=== PATIENT | female | born 1955 | race Caucasian/White ===

== ENCOUNTER 2017-11-02 17:38 | Inpatient (IN) | payer BC ==
[~2017-11-02] VITALS: Ht 177.8 cm; Wt 60.1 kg
[2017-11-02 19:11] LABS: Basophils # (auto) 0 uL; Basophils % (auto) 0.2 % (0.0-2.0); Eosinophils # (auto) 0 uL; Eosinophils % (auto) 0.2 % (0.0-7.0); Hematocrit 40.4 % (36.0-46.0); Hemoglobin 13.7 g/dL (12.2-16.2); Lymphocytes # (auto) 1.9 uL; Lymphocytes % (auto) 9.3 % (10.0-50.0); Mean Corpuscular Hemoglobin 31.4 pg (28.0-32.0); Mean Corpuscular Hgb Conc. 33.9 g/dL (32.0-36.0); Mean Corpuscular Volume 92.6 fL (80.0-100.0); Monocytes # (auto) 0.9 uL; Monocytes % (auto) 4.6 % (0.0-12.0); Neutrophils # (auto) 17.3 uL; Neutrophils % (auto) 85.7 % (37.0-80.0); Nucleated Red Blood Cells % 0.1 %; Platelet Count (auto) 281 10^3/uL (140-450); Red Blood Cells 4.37 10^6/uL (4.0-5.20); Red Cell Distribution Width 12.9 % (11.8-14.3); White Blood Cell 20.2 10^3/uL (4.4-10.8)
[2017-11-02] MEDS ORDERED: ONDANSETRON HCL 4 MG/2 ML VIAL ONE (19:17)
[2017-11-02 19:24] LABS: INR 0.99 (0.9-1.15); Partial Thromboplastin Time 23.3 sec (22.64-33.71); Prothrombin Time 10.8 sec (9.37-12.3)
[2017-11-02 19:34] LABS: Albumin 4.3 g/dL (3.4-5.0); BUN/Creatinine Ratio 18.5; Bilirubin, Total 0.4 mg/dL (0.2-1.0); Calcium 9.4 mg/dL (8.5-10.1); Magnesium 2.1 mg/dL (1.6-2.6); Potassium 3.8 mmol/L (3.5-5.1); Total Protein 7.6 g/dL (6.4-8.2)
[2017-11-02] MEDS ORDERED: NALBUPHINE HCL 10 MG/1ml INJECTION IV ONE ×2 (20:00→22:15)
[2017-11-02] MEDS ORDERED: PROMETHAZINE HCL 25 MG/ML 1ML IV ONE ×2 (20:00→22:15)
[2017-11-02 20:44] LABS: Amylase 56 U/L (25-115); Lipase 140 U/L (73-393)
[2017-11-02] MEDS ORDERED: ACETAMINOPHEN 325 MG TAB PO PRN (23:30)
[2017-11-02] MEDS ORDERED: NITROGLYCERIN 0.4 MG SL TAB SL PRN (23:30)
[2017-11-02] MEDS ORDERED: PANTOPRAZOLE 40 MG/10 ML VIAL IV ONE (23:30)
[2017-11-02] MEDS ORDERED: HYDROcodone-ACET 5/325MG TAB PO PRN (23:30)
[2017-11-02] MEDS ORDERED: MORPHINE SULF INJ 2 MG/ML SYRINGE 1ML IV PRN (23:30)
[2017-11-02] MEDS ORDERED: TEMAZEPAM 15 MG CAP PO PRN (23:30)
[2017-11-02] MEDS: SODIUM CHLORIDE 0.9% 1,000 ML IV SCH (23:41)
[2017-11-03 01:30] VITALS: BP 155/64
[2017-11-03] MEDS: ONDANSETRON HCL 4 MG/2 ML VIAL IV PRN ×4 (01:34→15:50)
[2017-11-03] MEDS ORDERED: CLOP75TA28 PO (02:30)
[2017-11-03] MEDS ORDERED: METO-158 PO (02:30)
[2017-11-03] MEDS ORDERED: ASPI81TA27 PO (02:30)
[2017-11-03] MEDS ORDERED: HYDR-4683 PO (02:30)
[2017-11-03] MEDS ORDERED: NIAC500T71 PO (02:30)
[2017-11-03] MEDS ORDERED: ATOR80TA PO (02:30)
[2017-11-03] MEDS ORDERED: BACL10TA PO (02:30)
[2017-11-03] MEDS ORDERED: LOSA50TA6 PO (02:30)
[2017-11-03 05:00] VITALS: BP 154/80
[2017-11-03 05:38] LABS: Basophils # (auto) 0 uL; Basophils % (auto) 0.2 % (0.0-2.0); Eosinophils # (auto) 0 uL; Hematocrit 39.6 % (36.0-46.0); Hemoglobin 13.5 g/dL (12.2-16.2); Lymphocytes % (auto) 8.4 % (10.0-50.0); Mean Corpuscular Hemoglobin 31.6 pg (28.0-32.0); Mean Corpuscular Hgb Conc. 34.1 g/dL (32.0-36.0); Mean Corpuscular Volume 92.7 fL (80.0-100.0); Monocytes # (auto) 0.3 uL; Monocytes % (auto) 2.8 % (0.0-12.0); Neutrophils # (auto) 10.4 uL; Neutrophils % (auto) 88.6 % (37.0-80.0); Platelet Count (auto) 252 10^3/uL (140-450); Red Blood Cells 4.28 10^6/uL (4.0-5.20); Red Cell Distribution Width 12.8 % (11.8-14.3); White Blood Cell 11.7 10^3/uL (4.4-10.8)
[2017-11-03 06:00] LABS: Albumin 3.9 g/dL (3.4-5.0); Bilirubin, Total 0.5 mg/dL (0.2-1.0); Calcium 8.8 mg/dL (8.5-10.1); Potassium 4.4 mmol/L (3.5-5.1); Total Protein 7.3 g/dL (6.4-8.2)
[2017-11-03] MEDS: NALBUPHINE HCL 10 MG/1ml INJECTION IV PRN ×3 (07:58→15:50)
[2017-11-03 08:13] VITALS: BP 143/92
[2017-11-03] MEDS ORDERED: GASTROGRAFIN 120 ML SOL ONE (09:17)
[2017-11-03] MEDS ORDERED: PANTOPRAZOLE 40 MG/10 ML VIAL IV SCH (10:00)
[2017-11-03] MEDS ORDERED: ASPirin 81 mg TAB PO SCH (10:00)
[2017-11-03] MEDS ORDERED: Niacin SR 500mg TAB PO SCH (10:00)
[2017-11-03] MEDS ORDERED: LOSARTAN POTASSIUM 50 MG TAB PO SCH (10:00)
[2017-11-03] MEDS ORDERED: ENOXAPARIN SOD 40 MG/0.4 ML SYRINGE SC SCH (10:00)
[2017-11-03] MEDS ORDERED: METOPROLOL TARTRATE 50 MG TAB PO SCH (10:00)
[2017-11-03] MEDS ORDERED: CLOPIDOGREL BISULFATE 75 MG TAB PO SCH (10:00)
[2017-11-03 12:30] VITALS: BP 162/85
[2017-11-03] MEDS: SODIUM CHLORIDE 0.9% 1,000 ML IV SCH (12:49)
[2017-11-03 15:30] VITALS: BP 142/85
[2017-11-03] MEDS ORDERED: ATORVASTATIN 20 MG TAB PO SCH (22:00)
== END 2017-11-03 15:52 | disposition home or self-care (01) | DRG 390 ==
LOC: EDBD 17:38 → ER 17:38 → EDBD 17:39 → TELE 17:39 → TELE-WESTW 23:59
PROVIDERS: ADMIT Nurse Practitioner; ATTEND Nurse Practitioner
DX: K56.51 Intestinal adhesions [bands], with partial obstruction (principal); I50.9 Heart failure, unspecified; I11.0 Hypertensive heart disease with heart failure; Z95.1 Presence of aortocoronary bypass graft; M41.9 Scoliosis, unspecified; E78.5 Hyperlipidemia, unspecified; I70.0 Atherosclerosis of aorta; Z82.49 Family history of ischemic heart disease and other diseases of the circulatory system; Z83.3 Family history of diabetes mellitus; Z90.710 Acquired absence of both cervix and uterus; Z80.9 Family history of malignant neoplasm, unspecified; Z88.0 Allergy status to penicillin; Z88.2 Allergy status to sulfonamides; I25.2 Old myocardial infarction; Z95.0 Presence of cardiac pacemaker
CPT/HCPCS: 36415; 71045; 74176; 80053; 82150; 83605; 83690; 83735; 83880; 84443; 84484; 85025; 85610; 85730; 87040; 93005; 94761; 96374; 96375; 96376; C9113; J2405

== ENCOUNTER 2023-10-10 19:32 | Inpatient (IN) | payer BC ==
[~2023-10-10] VITALS: Ht 177.8 cm; Wt 71.1 kg
[~2023-10-10 19:32] MED LIST: ASPI-543 PO; ATOR80TA PO; BACL10TA PO; CLOP75TA28 PO; HYDR-4833 PO; LOSA50TA46 PO; METO-158 PO; NIAC500T71 PO
[2023-10-10] MEDS ORDERED: HYDROcodone-ACET 10/325MG TAB PO ONE (21:00)
[2023-10-10 21:46] LABS: Basophils # (auto) 0.1 10 ^3/uL (0-0.2); Basophils % (auto) 0.8 % (0.0-2.0); Eosinophils # (auto) 0.1 10 ^3/uL (0-0.8); Eosinophils % (auto) 1.7 % (0.0-7.0); Hemoglobin 13.2 g/dL (12.2-16.2); Lymphocytes % (auto) 40.4 % (10.0-50.0); Mean Corpuscular Hemoglobin 31.5 pg (28.0-32.0); Mean Corpuscular Hgb Conc. 32.9 g/dL (32.0-36.0); Mean Corpuscular Volume 95.9 fL (80.0-100.0); Monocytes # (auto) 0.7 10 ^3/uL (0-1.3); Monocytes % (auto) 9.4 % (0.0-12.0); Neutrophils # (auto) 3.5 10 ^3/uL (1.6-8.6); Neutrophils % (auto) 47.7 % (37.0-80.0); Nucleated Red Blood Cells % 0.1 %; Red Blood Cells 4.17 10^6/uL (4.0-5.20); Red Cell Distribution Width 12.7 % (11.8-14.3); White Blood Cell 7.3 10^3/uL (4.4-10.8)
[2023-10-10 22:05] LABS: Alanine Aminotransferase 12 U/L (7-40); Albumin 4.2 g/dL (3.2-4.8); Alkaline Phosphatase 99 U/L (46-116); Anion Gap 7 (5-15); Aspartate Aminotransferase 13 U/L (13-40); BUN/Creatinine Ratio 14.6 (10.0-20.0); Blood Urea Nitrogen 12 mg/dL (9-23); Calcium 9.7 mg/dL (8.5-10.1); Carbon Dioxide 26 mmol/L (20-30); Chloride 109 mmol/L (98-107); Glucose 95 mg/dL (74-106); Potassium 4.1 mmol/L (3.5-5.1); Sodium 142 mmol/L (136-145)
[2023-10-10 22:06] LABS: Bilirubin, Total 0.3 mg/dL (0.2-1.0); Total Protein 6.7 g/dL (5.7-8.2)
[2023-10-10 22:17] LABS: INR 1.04 (0.9-1.15); Prothrombin Time 10.9 sec (9.3-11.8)
[2023-10-11] MEDS ORDERED: MAALOX PLUS or MAALOX 30 ML PO PRN (01:45)
[2023-10-11] MEDS ORDERED: ACETAMINOPHEN 325 MG TAB PO PRN (01:45)
[2023-10-11] MEDS ORDERED: DOCUSATE SOD 100 MG CAP PO PRN (01:45)
[2023-10-11] MEDS: HYDROcodone-ACET 5/325MG TAB PO PRN ×2 (15:34→22:14)
[2023-10-11] MEDS ORDERED: CLOPIDOGREL BISULFATE 75 MG TAB PO ONE (18:30)
[2023-10-11] MEDS ORDERED: APIX5TAB PO (21:06)
[2023-10-11] MEDS ORDERED: ISOS1TAB28 PO (21:06)
[2023-10-11] MEDS ORDERED: IOHEXOL 350 MG/ML 100ML IJ ONE (21:06)
[2023-10-11] MEDS ORDERED: METO1TAB9 PO (21:06)
[2023-10-11] MEDS ORDERED: APIXABAN 5 MG TAB PO SCH (22:00)
[2023-10-11] MEDS: ATORVASTATIN 20 MG TAB PO SCH (22:10)
[2023-10-11] MEDS: APIXABAN 5 MG TAB PO SCH (22:10)
[2023-10-11] MEDS: METOPROLOL TARTRATE 25 MG TAB PO SCH (22:11)
[2023-10-12] VITALS (7 sets, daily range): BP systolic 116–146; BP diastolic 57–103; PULSE 60–87; RESP 18–20; TEMP 97.8–98.7; O2SAT 91–96
[2023-10-12] MEDS: HYDROcodone-ACET 5/325MG TAB PO PRN ×3 (05:29→21:25)
[2023-10-12 06:22] LABS: Basophils # (auto) 0.1 10 ^3/uL (0-0.2); Basophils % (auto) 1.1 % (0.0-2.0); Eosinophils # (auto) 0.1 10 ^3/uL (0-0.8); Eosinophils % (auto) 2.4 % (0.0-7.0); Hematocrit 36.1 % (36.0-46.0); Hemoglobin 12.1 g/dL (12.2-16.2); Lymphocytes # (auto) 2.3 10 ^3/uL (0.4-5.4); Lymphocytes % (auto) 40.5 % (10.0-50.0); Mean Corpuscular Hemoglobin 32.1 pg (28.0-32.0); Mean Corpuscular Hgb Conc. 33.5 g/dL (32.0-36.0); Mean Corpuscular Volume 95.9 fL (80.0-100.0); Monocytes # (auto) 0.6 10 ^3/uL (0-1.3); Monocytes % (auto) 10.6 % (0.0-12.0); Neutrophils # (auto) 2.5 10 ^3/uL (1.6-8.6); Neutrophils % (auto) 45.4 % (37.0-80.0); Red Blood Cells 3.76 10^6/uL (4.0-5.20); Red Cell Distribution Width 12.8 % (11.8-14.3); White Blood Cell 5.6 10^3/uL (4.4-10.8)
[2023-10-12 06:30] LABS: Alanine Aminotransferase 10 U/L (7-40); Albumin 3.8 g/dL (3.2-4.8); Alkaline Phosphatase 89 U/L (46-116); Anion Gap 7 (5-15); Aspartate Aminotransferase 9 U/L (13-40); BUN/Creatinine Ratio 16.7 (10.0-20.0); Bilirubin, Total 0.4 mg/dL (0.2-1.0); Blood Urea Nitrogen 13 mg/dL (9-23); Calcium 9.1 mg/dL (8.7-10.4); Carbon Dioxide 24 mmol/L (20-30); Chloride 111 mmol/L (98-107); Glucose 88 mg/dL (74-106); Potassium 4.5 mmol/L (3.5-5.1); Sodium 142 mmol/L (136-145); Total Protein 5.9 g/dL (5.7-8.2)
[2023-10-12] MEDS: METOPROLOL TARTRATE 25 MG TAB PO SCH ×2 (08:43→21:27)
[2023-10-12] MEDS: APIXABAN 5 MG TAB PO SCH ×2 (08:43→21:25)
[2023-10-12] MEDS: LOSARTAN POTASSIUM 25 MG TAB PO SCH (08:44)
[2023-10-12] MEDS ORDERED: CLOPIDOGREL BISULFATE 75 MG TAB PO SCH (10:00)
[2023-10-12] MEDS ORDERED: IOHEXOL 350 MG/ML 100ML IJ ONE (10:38)
[2023-10-12] MEDS: MORPHINE SULFATE INJ 2 MG/ml SYRG IV PRN ×2 (13:27→18:10)
[2023-10-12] MEDS: ATORVASTATIN 20 MG TAB PO SCH (21:25)
[2023-10-13] VITALS (7 sets, daily range): BP systolic 115–155; BP diastolic 68–89; PULSE 61–79; RESP 16–20; TEMP 98.1–98.3; O2SAT 93–98
[2023-10-13] MEDS: MORPHINE SULFATE INJ 2 MG/ml SYRG IV PRN ×6 (00:24→21:23)
[2023-10-13] MEDS: hydrALAZINE HCL 20 MG/ML VL IV PRN (04:31)
[2023-10-13 07:27] LABS: Basophils # (auto) 0.1 10 ^3/uL (0-0.2); Basophils % (auto) 0.9 % (0.0-2.0); Eosinophils # (auto) 0.2 10 ^3/uL (0-0.8); Eosinophils % (auto) 2.1 % (0.0-7.0); Hemoglobin 13.3 g/dL (12.2-16.2); Lymphocytes # (auto) 2.1 10 ^3/uL (0.4-5.4); Lymphocytes % (auto) 29.7 % (10.0-50.0); Mean Corpuscular Hemoglobin 31.6 pg (28.0-32.0); Mean Corpuscular Hgb Conc. 33.2 g/dL (32.0-36.0); Mean Corpuscular Volume 95.2 fL (80.0-100.0); Monocytes # (auto) 0.5 10 ^3/uL (0-1.3); Monocytes % (auto) 7.5 % (0.0-12.0); Neutrophils # (auto) 4.3 10 ^3/uL (1.6-8.6); Neutrophils % (auto) 59.8 % (37.0-80.0); Nucleated Red Blood Cells % 0.1 %; Red Blood Cells 4.21 10^6/uL (4.0-5.20); Red Cell Distribution Width 12.9 % (11.8-14.3); White Blood Cell 7.2 10^3/uL (4.4-10.8)
[2023-10-13] MEDS: APIXABAN 5 MG TAB PO SCH ×2 (08:47→21:19)
[2023-10-13] MEDS: METOPROLOL TARTRATE 25 MG TAB PO SCH ×2 (08:47→21:19)
[2023-10-13] MEDS: LOSARTAN POTASSIUM 25 MG TAB PO SCH (08:48)
[2023-10-13] MEDS: ATORVASTATIN 20 MG TAB PO SCH (21:19)
[2023-10-14] VITALS (7 sets, daily range): BP systolic 115–192; BP diastolic 57–93; PULSE 68–89; RESP 17–20; TEMP 97.8–98.4; O2SAT 93–96
[2023-10-14] MEDS: MORPHINE SULFATE INJ 2 MG/ml SYRG IV PRN ×5 (01:34→21:50)
[2023-10-14 06:12] LABS: Basophils # (auto) 0.1 10 ^3/uL (0-0.2); Basophils % (auto) 0.9 % (0.0-2.0); Eosinophils # (auto) 0.2 10 ^3/uL (0-0.8); Eosinophils % (auto) 2.5 % (0.0-7.0); Hematocrit 38.8 % (36.0-46.0); Hemoglobin 12.9 g/dL (12.2-16.2); Lymphocytes # (auto) 2.4 10 ^3/uL (0.4-5.4); Lymphocytes % (auto) 36.5 % (10.0-50.0); Mean Corpuscular Hemoglobin 31.6 pg (28.0-32.0); Mean Corpuscular Hgb Conc. 33.4 g/dL (32.0-36.0); Mean Corpuscular Volume 94.8 fL (80.0-100.0); Monocytes # (auto) 0.6 10 ^3/uL (0-1.3); Neutrophils # (auto) 3.4 10 ^3/uL (1.6-8.6); Neutrophils % (auto) 51.1 % (37.0-80.0); Nucleated Red Blood Cells % 0.1 %; Red Blood Cells 4.09 10^6/uL (4.0-5.20); Red Cell Distribution Width 12.8 % (11.8-14.3); White Blood Cell 6.6 10^3/uL (4.4-10.8)
[2023-10-14] MEDS: METOPROLOL TARTRATE 25 MG TAB PO SCH ×2 (08:46→21:27)
[2023-10-14] MEDS: APIXABAN 5 MG TAB PO SCH ×2 (08:46→21:27)
[2023-10-14] MEDS: LOSARTAN POTASSIUM 25 MG TAB PO SCH (08:46)
[2023-10-14] MEDS: ATORVASTATIN 20 MG TAB PO SCH (21:27)
[2023-10-14] MEDS: hydrALAZINE HCL 20 MG/ML VL IV PRN (21:49)
[2023-10-14] MEDS: ONDANSETRON HCL 4 MG/2 ML VIAL IV PRN (21:56)
[2023-10-15] VITALS (9 sets, daily range): BP systolic 123–147; BP diastolic 60–69; PULSE 68–105; RESP 12–18; TEMP 97.8–98.3; O2SAT 91–98
[2023-10-15] MEDS: MORPHINE SULFATE INJ 2 MG/ml SYRG IV PRN ×4 (02:36→22:20)
[2023-10-15] MEDS: ONDANSETRON HCL 4 MG/2 ML VIAL IV PRN ×4 (02:36→22:20)
[2023-10-15 06:22] LABS: Basophils # (auto) 0 10 ^3/uL (0-0.2); Basophils % (auto) 0.7 % (0.0-2.0); Eosinophils # (auto) 0.2 10 ^3/uL (0-0.8); Eosinophils % (auto) 2.7 % (0.0-7.0); Hematocrit 37.8 % (36.0-46.0); Hemoglobin 12.6 g/dL (12.2-16.2); Lymphocytes # (auto) 2.2 10 ^3/uL (0.4-5.4); Lymphocytes % (auto) 32.6 % (10.0-50.0); Mean Corpuscular Hemoglobin 31.9 pg (28.0-32.0); Mean Corpuscular Hgb Conc. 33.3 g/dL (32.0-36.0); Mean Corpuscular Volume 95.9 fL (80.0-100.0); Monocytes # (auto) 0.7 10 ^3/uL (0-1.3); Monocytes % (auto) 9.9 % (0.0-12.0); Neutrophils # (auto) 3.7 10 ^3/uL (1.6-8.6); Neutrophils % (auto) 54.1 % (37.0-80.0); Nucleated Red Blood Cells % 0.1 %; Red Blood Cells 3.94 10^6/uL (4.0-5.20); Red Cell Distribution Width 12.7 % (11.8-14.3); White Blood Cell 6.8 10^3/uL (4.4-10.8)
[2023-10-15] MEDS: LOSARTAN POTASSIUM 25 MG TAB PO SCH (08:00)
[2023-10-15] MEDS: METOPROLOL TARTRATE 25 MG TAB PO SCH ×2 (08:00→22:21)
[2023-10-15] MEDS: APIXABAN 5 MG TAB PO SCH ×2 (08:00→22:20)
[2023-10-15] MEDS ORDERED: ONDANSETRON HCL 4 MG/2 ML VIAL ONE (11:19)
[2023-10-15] MEDS ORDERED: LIDOCAINE 2% (LOCAL ANESTH.) PF 5ml SDV ONE (11:19)
[2023-10-15] MEDS ORDERED: ROCURONIUM 10MG/ML 10ML VIAL IV ONE (11:19)
[2023-10-15] MEDS ORDERED: GLYCOPYRROLATE 0.2 MG/ML 1ML VIAL ONE (11:19)
[2023-10-15] MEDS ORDERED: DexAMETHasone SOD PHOS 10MG/1ML VIAL INJ ONE (11:19)
[2023-10-15] MEDS ORDERED: PROPOFOL 10 MG/ML 20 ML IV ONE (11:20)
[2023-10-15] MEDS ORDERED: SUGAMMADEX 200mg/2ml Vial (100MG/ML) IV ONE (11:22)
[2023-10-15] MEDS ORDERED: fentaNYL CITRATE 100 MCG/2 ML VL ONE (11:22)
[2023-10-15] MEDS ORDERED: BUPIVACAINE W/ EPINEPH 0.5% MPF 30ML VIAL IJ ONE (11:40)
[2023-10-15] MEDS ORDERED: LIDOCAINE 1% HCL (LOCAL ANESTH.) INJ 20ML MDV ONE (11:41)
[2023-10-15] MEDS ORDERED: HEPARIN SODIUM (PORCINE) 5000 UNITS/ML 1ML VIAL ONE (11:41)
[2023-10-15] MEDS ORDERED: VANCOMYCIN HCL 1000 MG VL ONE ×3 (11:53→12:42)
[2023-10-15] MEDS ORDERED: KETAMINE 50mg/ML 1ml syringe ONE (12:01)
[2023-10-15] MEDS ORDERED: PHENYLEPHRINE HCL 10 MG/ML VL ONE (12:25)
[2023-10-15] MEDS ORDERED: SODIUM CHLORIDE LOCK 10 ML ONE (12:25)
[2023-10-15] MEDS ORDERED: ePHEDrine SULFATE 50 MG/ML AMP ONE (12:28)
[2023-10-15 12:31] LABS: Urine Bacteria FEW /hpf (None Seen); Urine Blood Negative /uL (Negative); Urine Clarity Clear (Clear); Urine Color Yellow (Yellow); Urine Hyaline Cast FEW /lpf (0 - 2); Urine Protein, UAD Negative (Negative); Urine Specific Gravity 1.018 (1.001-1.035); Urine Urobilinogen Normal (Negative); Urine WBC 5 /hpf (0 - 5); Urine pH 5.5 (5.0-8.0)
[2023-10-15] MEDS ORDERED: OXYCODONE W/ ACETAMINOPHEN 5/325MG TABLET PO PRN (13:30)
[2023-10-15] MEDS ORDERED: hydrALAZINE HCL 20 MG/ML VL IV PRN (13:30)
[2023-10-15] MEDS ORDERED: NALOXONE HCL 0.4 MG/ML VIAL IV PRN (13:30)
[2023-10-15] MEDS ORDERED: ePHEDrine SULFATE 50 MG/ML AMP IV PRN (13:30)
[2023-10-15] MEDS ORDERED: FLUMAZENIL 0.1 MG/ML INJ 10ML MDV IV PRN (13:30)
[2023-10-15] MEDS ORDERED: ONDANSETRON HCL 4 MG/2 ML VIAL IV PRN (13:30)
[2023-10-15] MEDS ORDERED: fentaNYL CITRATE 100 MCG/2 ML VL IV PRN (13:30)
[2023-10-15] MEDS ORDERED: LABETALOL HCL 5 MG/ML 4ML SYRINGE IV PRN (13:30)
[2023-10-15] MEDS ORDERED: HYDROmorphone HCL 2 MG/ML VL/or syr ONE (13:34)
[2023-10-15] MEDS: HYDROmorphone HCL 2 MG/ML VL/or syr IV PRN ×3 (13:35→14:10)
[2023-10-15] MEDS: ATORVASTATIN 20 MG TAB PO SCH (22:19)
[2023-10-16] VITALS (7 sets, daily range): BP systolic 113–153; BP diastolic 45–60; PULSE 64–97; RESP 14–20; TEMP 97.9–98.9; O2SAT 92–98
[2023-10-16] MEDS: MORPHINE SULFATE INJ 2 MG/ml SYRG IV PRN ×5 (02:47→22:23)
[2023-10-16 05:13] LABS: Basophils # (auto) 0 10 ^3/uL (0-0.2); Basophils % (auto) 0.1 % (0.0-2.0); Eosinophils # (auto) 0 10 ^3/uL (0-0.8); Hematocrit 36.7 % (36.0-46.0); Hemoglobin 12.3 g/dL (12.2-16.2); Lymphocytes # (auto) 0.8 10 ^3/uL (0.4-5.4); Lymphocytes % (auto) 8.4 % (10.0-50.0); Mean Corpuscular Hemoglobin 31.9 pg (28.0-32.0); Mean Corpuscular Hgb Conc. 33.5 g/dL (32.0-36.0); Mean Corpuscular Volume 95.1 fL (80.0-100.0); Monocytes # (auto) 0.5 10 ^3/uL (0-1.3); Monocytes % (auto) 5.3 % (0.0-12.0); Neutrophils # (auto) 7.8 10 ^3/uL (1.6-8.6); Neutrophils % (auto) 86.2 % (37.0-80.0); Red Blood Cells 3.85 10^6/uL (4.0-5.20); Red Cell Distribution Width 12.5 % (11.8-14.3); White Blood Cell 9.1 10^3/uL (4.4-10.8)
[2023-10-16] MEDS: APIXABAN 5 MG TAB PO SCH ×2 (08:17→22:20)
[2023-10-16] MEDS: METOPROLOL TARTRATE 25 MG TAB PO SCH ×2 (08:18→22:00)
[2023-10-16] MEDS: LOSARTAN POTASSIUM 25 MG TAB PO SCH (08:18)
[2023-10-16] MEDS: ONDANSETRON HCL 4 MG/2 ML VIAL IV PRN ×4 (08:19→22:23)
[2023-10-16] MEDS: ATORVASTATIN 20 MG TAB PO SCH (22:22)
[2023-10-17] MEDS: ONDANSETRON HCL 4 MG/2 ML VIAL IV PRN ×2 (02:21→10:00)
[2023-10-17] MEDS: MORPHINE SULFATE INJ 2 MG/ml SYRG IV PRN ×2 (02:22→09:53)
[2023-10-17 05:00] VITALS: BP 114/46; PULSE 58; RESP 16; TEMP 97.7; O2SAT 93
[2023-10-17 05:14] LABS: Basophils # (auto) 0 10 ^3/uL (0-0.2); Basophils % (auto) 0.3 % (0.0-2.0); Eosinophils # (auto) 0.1 10 ^3/uL (0-0.8); Eosinophils % (auto) 0.8 % (0.0-7.0); Hematocrit 34.9 % (36.0-46.0); Hemoglobin 11.6 g/dL (12.2-16.2); Lymphocytes # (auto) 2.7 10 ^3/uL (0.4-5.4); Lymphocytes % (auto) 24.8 % (10.0-50.0); Mean Corpuscular Hemoglobin 31.8 pg (28.0-32.0); Mean Corpuscular Hgb Conc. 33.1 g/dL (32.0-36.0); Mean Corpuscular Volume 96.1 fL (80.0-100.0); Monocytes # (auto) 0.7 10 ^3/uL (0-1.3); Monocytes % (auto) 6.7 % (0.0-12.0); Neutrophils # (auto) 7.4 10 ^3/uL (1.6-8.6); Neutrophils % (auto) 67.4 % (37.0-80.0); Red Blood Cells 3.63 10^6/uL (4.0-5.20); Red Cell Distribution Width 12.9 % (11.8-14.3)
[2023-10-17 08:00] VITALS: BP 140/65; PULSE 60; PULSE 68; RESP 18; TEMP 98.1; O2SAT 92; O2SAT 98
[2023-10-17] MEDS: HYDROcodone-ACET 5/325MG TAB PO PRN (09:24)
[2023-10-17] MEDS: APIXABAN 5 MG TAB PO SCH (09:52)
[2023-10-17] MEDS: METOPROLOL TARTRATE 25 MG TAB PO SCH (09:52)
[2023-10-17] MEDS: LOSARTAN POTASSIUM 25 MG TAB PO SCH (09:52)
[2023-10-17] MEDS ORDERED: HYDR-4902 PO (10:22)
[2023-10-17 12:00] VITALS: BP 111/55; PULSE 85; RESP 18; TEMP 98.6; O2SAT 96
== END 2023-10-17 14:29 | disposition home or self-care (01) | DRG 908 ==
LOC: ER 19:32 → OVERFLOW 10-11 01:41 → TELE-WESTW 10-11 20:04
PROVIDERS: ADMIT Hospitalist; ATTEND Internal Medicine
PROC: 04CL0ZZ Extirpation of Matter from Left Femoral Artery, Open Approach (ICD-10-PCS; principal; 2023-10-15 12:04)
DX: L76.22 Postprocedural hemorrhage of skin and subcutaneous tissue following other procedure (principal); D62 Acute posthemorrhagic anemia; I13.0 Hypertensive heart and chronic kidney disease with heart failure and stage 1 through stage 4 chronic kidney disease, or unspecified chronic kidney disease; L76.32 Postprocedural hematoma of skin and subcutaneous tissue following other procedure; I73.9 Peripheral vascular disease, unspecified; I25.10 Atherosclerotic heart disease of native coronary artery without angina pectoris; N18.2 Chronic kidney disease, stage 2 (mild); E78.5 Hyperlipidemia, unspecified; I50.9 Heart failure, unspecified; Z88.0 Allergy status to penicillin; Z88.2 Allergy status to sulfonamides; I25.2 Old myocardial infarction; Z90.710 Acquired absence of both cervix and uterus; Z95.810 Presence of automatic (implantable) cardiac defibrillator; Z83.3 Family history of diabetes mellitus; Z82.49 Family history of ischemic heart disease and other diseases of the circulatory system; Z87.891 Personal history of nicotine dependence; Z79.01 Long term (current) use of anticoagulants; Z95.1 Presence of aortocoronary bypass graft; Z98.61 Coronary angioplasty status; Z90.5 Acquired absence of kidney; Y83.8 Other surgical procedures as the cause of abnormal reaction of the patient, or of later complication, without mention of misadventure at the time of the procedure; Y82.8 Other medical devices associated with adverse incidents
CPT/HCPCS: 36415; 71045; 75635; 80053; 81001; 85025; 85610; 86850; 86900; 86901; 87040; 87070; 87075; 87205; 93005; 93926; G0378; J1100; J2001; J2405; J2704

== ENCOUNTER 2023-10-21 12:27 | Emergency (ER) | payer BC ==
[~2023-10-21] VITALS: Ht 177.8 cm; Wt 75.0 kg
[~2023-10-21 12:27] MED LIST changes: +APIX5TAB PO; -ASPI-543 PO; -BACL10TA PO; -HYDR-4833 PO; +HYDR-4902 PO; +ISOS1TAB28 PO; -METO-158 PO; +METO1TAB9 PO; -NIAC500T71 PO
[2023-10-21 14:05] VITALS: BP 109/56; PULSE 71; RESP 17; TEMP 98.3; O2SAT 94
== END 2023-10-21 14:09 | disposition home or self-care (01) ==
LOC: ER 12:27
DX: L76.31 Postprocedural hematoma of skin and subcutaneous tissue following a dermatologic procedure (principal); I13.0 Hypertensive heart and chronic kidney disease with heart failure and stage 1 through stage 4 chronic kidney disease, or unspecified chronic kidney disease; N18.9 Chronic kidney disease, unspecified; I50.9 Heart failure, unspecified; E78.5 Hyperlipidemia, unspecified; I25.2 Old myocardial infarction; Z86.73 Personal history of transient ischemic attack (TIA), and cerebral infarction without residual deficits; Z90.49 Acquired absence of other specified parts of digestive tract; Z90.89 Acquired absence of other organs; Z90.710 Acquired absence of both cervix and uterus; Z95.0 Presence of cardiac pacemaker; Z79.01 Long term (current) use of anticoagulants; Z79.899 Other long term (current) drug therapy; Z88.0 Allergy status to penicillin; Z88.2 Allergy status to sulfonamides

== ENCOUNTER 2024-01-22 14:43 | Inpatient (IN) | payer BC ==
[~2024-01-22] VITALS: Ht 175.3 cm; Wt 70.0 kg
[~2024-01-22 14:43] MED LIST changes: +LOSA-534 PO; -LOSA50TA46 PO
[2024-01-22] MEDS: NITROGLYCERIN 0.4 MG SL TAB SL ONE (15:00)
[2024-01-22 15:20] LABS: Basophils # (auto) 0 10 ^3/uL (0-0.2); Basophils % (auto) 0.6 % (0.0-2.0); Eosinophils # (auto) 0.1 10 ^3/uL (0-0.8); Eosinophils % (auto) 1.2 % (0.0-7.0); Hemoglobin 13.3 g/dL (12.2-16.2); Lymphocytes # (auto) 2.1 10 ^3/uL (0.4-5.4); Lymphocytes % (auto) 35.8 % (10.0-50.0); Mean Corpuscular Hemoglobin 31.1 pg (28.0-32.0); Mean Corpuscular Hgb Conc. 33.3 g/dL (32.0-36.0); Mean Corpuscular Volume 93.2 fL (80.0-100.0); Monocytes # (auto) 0.4 10 ^3/uL (0-1.3); Monocytes % (auto) 6.9 % (0.0-12.0); Neutrophils # (auto) 3.2 10 ^3/uL (1.6-8.6); Neutrophils % (auto) 55.5 % (37.0-80.0); Nucleated Red Blood Cells % 0.2 %; Red Blood Cells 4.29 10^6/uL (4.0-5.20); Red Cell Distribution Width 13.1 % (11.8-14.3); White Blood Cell 5.7 10^3/uL (4.4-10.8)
[2024-01-22 15:40] LABS: Alanine Aminotransferase 23 U/L (7-40); Alkaline Phosphatase 89 U/L (46-116); Anion Gap 6 (5-15); Aspartate Aminotransferase 16 U/L (13-40); BUN/Creatinine Ratio 13.7 (10.0-20.0); Bilirubin, Total 0.4 mg/dL (0.2-1.0); Blood Urea Nitrogen 13 mg/dL (9-23); Calcium 9.3 mg/dL (8.7-10.4); Carbon Dioxide 25 mmol/L (20-30); Chloride 109 mmol/L (98-107); Creatine Kinase IFCC 55 U/L (34-145); Glucose 246 mg/dL (74-106); Magnesium 1.7 mg/dL (1.6-2.6); Potassium 3.8 mmol/L (3.5-5.1); Sodium 140 mmol/L (136-145); Total Protein 5.9 g/dL (5.7-8.2)
[2024-01-22 15:51] LABS: Lactic Acid w/Reflex 3.5 mmol/L (0.4-2.0)
[2024-01-22] MEDS: SODIUM CHLORIDE 0.9% 1,000 ML IV ONE (16:00)
[2024-01-22] MEDS ORDERED: NITROGLYCERIN 0.4 MG SL TAB SL PRN (16:30)
[2024-01-22] MEDS ORDERED: HYDROcodone-ACET 5/325MG TAB PO PRN (16:30)
[2024-01-22] MEDS ORDERED: DEXTROSE (50%) 50ML SYRG IV PRN ×2 (16:30→17:30)
[2024-01-22 16:53] LABS: Triglycerides 247 mg/dL (< 150)
[2024-01-22 16:54] LABS: LDL Cholesterol 125 mg/dL (< 100)
[2024-01-22 16:55] LABS: Cholesterol 190 mg/dL (< 200); HDL Cholesterol 39 mg/dL (40-59)
[2024-01-22] MEDS: InsuLIN REG 1unit/0.01ml Soln (100units/ml) SC SCH (17:00)
[2024-01-22] MEDS: ACCU-CHEK COMFORT CURVE STRIP VI SCH (17:00)
[2024-01-22 17:45] VITALS: PULSE 80; RESP 15; O2SAT 94
[2024-01-22] MEDS: LABETALOL HCL 5 MG/ML 4ML SYRINGE IV ONE (17:56)
[2024-01-22] MEDS: SODIUM CHLORIDE 0.9% 500 ML IV ONE (17:59)
[2024-01-22] MEDS: ASPirin 81 mg TAB PO ONE (19:15)
[2024-01-22] MEDS ORDERED: ENOXAPARIN SOD 100 MG/1 ML SYRINGE SC ONE (19:15)
[2024-01-22 19:47] LABS: Partial Thromboplastin Time 29.6 SEC (24.5-34.5); Prothrombin Time 10.5 sec (9.3-11.8)
[2024-01-22 20:00] VITALS: PULSE 78; RESP 15; O2SAT 94
[2024-01-22] MEDS: MORPHINE SULFATE INJ 2 MG/ml SYRG IV PRN (20:59)
[2024-01-22] MEDS: HEPARIN SODIUM (PORCINE) 5000 UNITS/ML 1ML VIAL IV ONE (21:19)
[2024-01-22] MEDS: NITROGLYCERIN 0.4MG/HR TOPICAL PATCH TD ONE (21:33)
[2024-01-22] MEDS: CLOPIDOGREL BISULFATE 75 MG TAB PO ONE (21:33)
[2024-01-22] MEDS ORDERED: ACCU-CHEK COMFORT CURVE STRIP VI SCH (22:00)
[2024-01-22] MEDS ORDERED: InsuLIN REG 1unit/0.01ml Soln (100units/ml) SC SCH (22:00)
[2024-01-22] MEDS ORDERED: ENOXAPARIN SOD 100 MG/1 ML SYRINGE SC SCH (22:00)
[2024-01-22] MEDS: HEPARIN DRIP/D5W 100UNITS/ML 250 ML IV SCH (22:49)
[2024-01-22] MEDS: ATORVASTATIN 20 MG TAB PO SCH (23:04)
[2024-01-22] MEDS: METOPROLOL TARTRATE 25 MG TAB PO SCH (23:04)
[2024-01-22 23:07] VITALS: BP 157/94; PULSE 76; RESP 19; TEMP 98.4; O2SAT 98
[2024-01-22] MEDS: MAGNESIUM SULFATE 1GM/100ML 100 ML IV ONE (23:33)
[2024-01-22 23:43] VITALS: BP 157/94; PULSE 76; RESP 19; TEMP 98.4; O2SAT 98
[2024-01-23] VITALS (38 sets, daily range): BP systolic 115–193; BP diastolic 59–86; PULSE 63–136; RESP 9–23; TEMP 97.8–100.6; O2SAT 93–99
[2024-01-23 06:17] LABS: Basophils # (auto) 0 10 ^3/uL (0-0.2); Basophils % (auto) 0.5 % (0.0-2.0); Eosinophils # (auto) 0.1 10 ^3/uL (0-0.8); Eosinophils % (auto) 1.9 % (0.0-7.0); Hematocrit 40.1 % (36.0-46.0); Hemoglobin 12.8 g/dL (12.2-16.2); Lymphocytes # (auto) 2.7 10 ^3/uL (0.4-5.4); Mean Corpuscular Hemoglobin 31.2 pg (28.0-32.0); Mean Corpuscular Volume 97.4 fL (80.0-100.0); Monocytes # (auto) 0.6 10 ^3/uL (0-1.3); Monocytes % (auto) 9.1 % (0.0-12.0); Neutrophils # (auto) 2.7 10 ^3/uL (1.6-8.6); Neutrophils % (auto) 44.5 % (37.0-80.0); Red Blood Cells 4.12 10^6/uL (4.0-5.20); Red Cell Distribution Width 13.5 % (11.8-14.3); White Blood Cell 6.1 10^3/uL (4.4-10.8)
[2024-01-23 06:31] LABS: Alanine Aminotransferase 19 U/L (7-40); Alkaline Phosphatase 78 U/L (46-116); Anion Gap 11 (5-15); BUN/Creatinine Ratio 9.2 (10.0-20.0); Blood Urea Nitrogen 8 mg/dL (9-23); Calcium 8.7 mg/dL (8.5-10.1); Carbon Dioxide 20 mmol/L (20-30); Chloride 113 mmol/L (98-107); Glucose 106 mg/dL (74-106); Potassium 4.3 mmol/L (3.5-5.1); Sodium 144 mmol/L (136-145)
[2024-01-23 06:32] LABS: Albumin 3.6 g/dL (3.2-4.8); Aspartate Aminotransferase 36 U/L (13-40)
[2024-01-23 06:33] LABS: Bilirubin, Total 0.4 mg/dL (0.2-1.0); Total Protein 5.4 g/dL (5.7-8.2)
[2024-01-23 06:48] LABS: INR 1.03 (0.9-1.15); Prothrombin Time 10.8 sec (9.3-11.8)
[2024-01-23 06:57] LABS: Partial Thromboplastin Time 102.5 SEC (24.5-34.5)
[2024-01-23] MEDS: HEPARIN DRIP/D5W 100UNITS/ML 250 ML IV SCH ×2 (08:30→22:15)
[2024-01-23] MEDS ORDERED: HEPARIN DRIP/D5W 100UNITS/ML 250 ML IV SCH (08:30)
[2024-01-23] MEDS: CLOPIDOGREL BISULFATE 75 MG TAB PO SCH (09:45)
[2024-01-23] MEDS: NITROGLYCERIN 0.4MG/HR TOPICAL PATCH TD SCH (09:45)
[2024-01-23] MEDS: ASPirin 81 mg TAB PO SCH (09:46)
[2024-01-23] MEDS: LOSARTAN POTASSIUM 25 MG TAB PO SCH (09:46)
[2024-01-23] MEDS: ACETAMINOPHEN 325 MG TAB PO PRN (11:40)
[2024-01-23] MEDS: hydrALAZINE HCL 20 MG/ML VL IV PRN (12:03)
[2024-01-23] MEDS ORDERED: cloNIDine HCL 0.1 MG TAB PO PRN ×2 (12:45→20:00)
[2024-01-23] MEDS: ONDANSETRON ODT 4 MG TAB PO PRN (14:08)
[2024-01-23 15:26] LABS: INR 1.03 (0.9-1.15); Partial Thromboplastin Time 51.5 SEC (24.5-34.5); Prothrombin Time 10.8 sec (9.3-11.8)
[2024-01-23] MEDS: NITROGLYCERIN 50MG/250ML 250 ML IV SCH (17:08)
[2024-01-23] MEDS: amLODIPine BESYLATE 5 MG TAB PO SCH (17:50)
[2024-01-23] MEDS: IOHEXOL 350 MG/ML 100ML IJ ONE (19:08)
[2024-01-23 22:02] LABS: Partial Thromboplastin Time 47.7 SEC (24.5-34.5); Prothrombin Time 10.5 sec (9.3-11.8)
[2024-01-24] VITALS (11 sets, daily range): BP systolic 108–141; BP diastolic 48–71; PULSE 72–123; RESP 10–17; TEMP 98.8–99.9; O2SAT 96–100
[2024-01-24] MEDS: METOPROLOL TARTRATE 25 MG TAB PO SCH
[2024-01-24] MEDS: IOHEXOL 350 MG/ML 100ML IJ ONE (00:07)
== END 2024-01-24 02:53 | disposition short-term general hospital (02) | DRG 281 ==
LOC: ER 14:43 → EDBD 14:43 → TELE 16:22 → TELE-WESTW 21:44 → ICU WEST 01-23 17:09
PROVIDERS: ADMIT Internal Medicine; ATTEND Emergency Medicine
PROC: 05H933Z Insertion of Infusion Device into Right Brachial Vein, Percutaneous Approach (ICD-10-PCS; principal; 2024-01-23)
PROC: B54MZZA Ultrasonography of Right Upper Extremity Veins, Guidance (ICD-10-PCS; 2024-01-23)
DX: I21.4 Non-ST elevation (NSTEMI) myocardial infarction (principal); E87.20 Acidosis, unspecified; I48.91 Unspecified atrial fibrillation; I73.9 Peripheral vascular disease, unspecified; I11.0 Hypertensive heart disease with heart failure; I25.10 Atherosclerotic heart disease of native coronary artery without angina pectoris; R73.9 Hyperglycemia, unspecified; E78.5 Hyperlipidemia, unspecified; I50.9 Heart failure, unspecified; Z79.01 Long term (current) use of anticoagulants; Z95.810 Presence of automatic (implantable) cardiac defibrillator; Z90.710 Acquired absence of both cervix and uterus; Z95.1 Presence of aortocoronary bypass graft; Z85.42 Personal history of malignant neoplasm of other parts of uterus; Z88.0 Allergy status to penicillin; Z88.2 Allergy status to sulfonamides; Z79.82 Long term (current) use of aspirin; Z87.891 Personal history of nicotine dependence; Z90.5 Acquired absence of kidney; Z82.49 Family history of ischemic heart disease and other diseases of the circulatory system; Z83.3 Family history of diabetes mellitus; Z86.73 Personal history of transient ischemic attack (TIA), and cerebral infarction without residual deficits
CPT/HCPCS: 36415; 71045; 75635; 80053; 80061; 82550; 82962; 83036; 83605; 83735; 83880; 84443; 84484; 85025; 85610; 85730; 87040; 87205; 93306; G0378; J3490; Q0162